=== PATIENT | male | born 1950 | race Caucasian/White ===

== ENCOUNTER → 2017-05-23 | Outpatient (CLI) | payer OTHER ==
--- NOTE | 2017-05-23 14:35 | MRI ---
MRI left shoulder without contrast Indication: Shoulder pain, decreased range of motion Comparison: None Technique: Multiplanar multi sequence MR images of the left shoulder were obtained without contrast. Findings: There is no acute fracture or dislocation. There are mild degenerative changes of the AC alex int. Mild supraspinatus and infraspinatus tendinosis is noted. There is no evidence for large cuff te ar or tendon retraction. There is mildly increased signal within the intra-articular long head biceps tendon, consistent with mild tendinosis. The long head biceps tendon is normally positioned within t he bicipital groove. There is no overt labral tear. There is mild diffuse glenohumeral chondrosis, wi thout full-thickness chondral defect or subchondral marrow signal abnormality. No significant muscle atrophy about the shoulder appreciated. Impression: Mild supraspinatus, infraspinatus, and intra-articular biceps tendinosis. Mild AC joint degenerative disease. Reported By:
== END ==
LOC: RAD 12:56
PROVIDERS: ATTEND Internal Medicine
DX: M25.512 Pain in left shoulder (principal); M19.012 Primary osteoarthritis, left shoulder
CPT/HCPCS: 73221